=== PATIENT | female | born 1995 | race Two or more races ===

== ENCOUNTER 2017-06-07 08:01 | Emergency (ER) | payer MEDICAID ==
[~2017-06-07] VITALS: Ht 165.1 cm; Wt 73.5 kg
[2017-06-07 08:40] VITALS: BP 123/76
== END 2017-06-07 09:10 | disposition home or self-care (01) ==
LOC: ER 08:01
DX: J20.9 Acute bronchitis, unspecified (principal)
CPT/HCPCS: 71020

== ENCOUNTER 2018-10-14 19:34 | Emergency (ER) | payer MEDICAID ==
[~2018-10-14] VITALS: Ht 160 cm; Wt 78.0 kg
[2018-10-14 19:51] VITALS: BP 136/85
[2018-10-14] MEDS ORDERED: IPRATROPIUM BROM 0.5 MG/2.5ML INH SOL NEB ONE (22:00)
[2018-10-14] MEDS ORDERED: ALBUTEROL SULF 2.5 MG/0.5ML(0.5%) NEB SOLN NEB ONE (22:00)
== END 2018-10-14 22:29 | disposition home or self-care (01) ==
LOC: ER 19:39
DX: J40 Bronchitis, not specified as acute or chronic (principal)
CPT/HCPCS: 71046; 94640; 99283; J7611; J7644

== ENCOUNTER 2018-12-02 13:44 | Emergency (ER) | payer MEDICAID ==
[~2018-12-02] VITALS: Ht 165.1 cm; Wt 72.6 kg
[2018-12-02 18:45] VITALS: BP 124/84
== END 2018-12-02 19:13 | disposition home or self-care (01) ==
LOC: ER 13:49
DX: O26.891 Other specified pregnancy related conditions, first trimester (principal); Z3A.01 Less than 8 weeks gestation of pregnancy
CPT/HCPCS: 36415; 84702